=== PATIENT | male | born 1945 ===

== ENCOUNTER → 2018-09-02 | Outpatient (CLI) | payer MEDICARE, OTHER | END | disposition home or self-care (01) | LOC: PLD 13:59 → LAB SHORT 13:59 | DX: D04.5 Carcinoma in situ of skin of trunk (principal); C44.329 Squamous cell carcinoma of skin of other parts of face | CPT/HCPCS: 88305 ==

== ENCOUNTER → 2018-09-22 | Outpatient (CLI) | payer MEDICARE, OTHER | END | disposition home or self-care (01) | LOC: PLD 14:03 → LAB SHORT 14:03 | DX: L08.89 Other specified local infections of the skin and subcutaneous tissue (principal); B88.9 Infestation, unspecified | CPT/HCPCS: 88305 ==

== ENCOUNTER 2023-08-01 06:08 | Day surgery (SDC) | payer MEDICARE, OTHER ==
[~2023-08-01] VITALS: Ht 170.2 cm; Wt 71.7 kg
[2023-08-01] VITALS (8 sets, daily range): BP systolic 109–144; BP diastolic 64–101
[~2023-08-01 06:08] MED LIST: C COMPLEX1000 M1 PO; Crestor40 MG PO; ESCI20 PO; HYDCHL25 PO; IBUP200 PO; LORA.5 PO; LOTENSIN HCT PO; MECL12.5 PO; METO25ER PO; PRAV20 PO; VALCYTE PO; [UNRECOGNIZED DRUG - CODE] PO
[2023-08-01] MEDS ORDERED: Lactated Ringer's 1,000 ML IV SCH (06:20)
[2023-08-01] MEDS ORDERED: CeFAZolin Sodium 2,000 MG in NS 50 ML IV SCH (06:20)
[2023-08-01] MEDS ORDERED: Ondansetron HCl 2 MG / ML 2ML Vial ONE (07:24)
[2023-08-01] MEDS ORDERED: Dexamethasone Sod Phos 10 MG/ML 1ML VIAL ONE (07:24)
[2023-08-01] MEDS ORDERED: Ketorolac Tromethamine 30mg Vial ONE (07:24)
[2023-08-01] MEDS ORDERED: FentaNYL Citrate 50 MCG/ML 2 ML Injection ONE (07:24)
[2023-08-01] MEDS ORDERED: propofoL 20 ML IV ONE (07:24)
[2023-08-01] MEDS ORDERED: Rocuronium Bromide 10 MG/ML 5ML Injection IV ONE (07:24)
[2023-08-01] MEDS ORDERED: Bupivacaine 0.5% HCl 5 MG/ML 30MLVIAL ONE ×2 (07:25→07:26)
[2023-08-01] MEDS ORDERED: Ropivacaine 0.5% HCl/Pf 5 MG/ML 20ML VIAL ONE (07:27)
[2023-08-01] MEDS ORDERED: Sugammadex Sodium 200 MG/2ML SDV (100 MG/ML) ONE (09:42)
[2023-08-01] MEDS ORDERED: HYDROcodone 5-APAP 325 TAB PO PRN (10:05)
--- NOTE | 2023-08-01 10:56 | NUR ---
Discharge instructions reviewed with patient. Patient verbalizes understanding. Copy given to patient to take home. Patient States Post-Procedure ride home has been arranged.
--- NOTE | 2023-08-01 11:04 | NUR ---
Patient up to Ambulate independently. Gait steady.
--- NOTE | 2023-08-01 11:06 | NUR ---
Discharged via wheelchair to private car for ride home.
== END 2023-08-01 11:07 | disposition home or self-care (01) ==
LOC: ORSCMMR 06:08 → ORD 07:30 → ORSCMMR 11:07
PROVIDERS: Surgery
PROC: 8E0W4CZ Robotic Assisted Procedure of Trunk Region, Percutaneous Endoscopic Approach (ICD-10-PCS; principal; 2023-08-01 07:30)
PROC: 0YUA4JZ Supplement Bilateral Inguinal Region with Synthetic Substitute, Percutaneous Endoscopic Approach (ICD-10-PCS; principal; 2023-08-01 07:30)
DX: K40.20 Bilateral inguinal hernia, without obstruction or gangrene, not specified as recurrent (principal); I10 Essential (primary) hypertension; Z79.899 Other long term (current) drug therapy
CPT/HCPCS: A9270; C1781; J0690; J1100; J1885; J2405; J2704; J2795; J3010; J7120

== ENCOUNTER 2024-09-07 11:08 | Day surgery (SDC) | payer MEDICARE, OTHER ==
[~2024-09-07] VITALS: Ht 172.7 cm; Wt 68.8 kg
[~2024-09-07 11:08] MED LIST changes: +Lactated Ringer's 1,000 ML IV ONE; +propofoL 50 ML IV ONE
[2024-09-07] MEDS ORDERED: TAMSULOSIN HCL0.4 M1 (12:08)
[2024-09-07] MEDS ORDERED: Aspir 8181 MG (12:09)
[2024-09-07] MEDS ORDERED: Lactated Ringer's 1,000 ML IV ONE (12:38)
[2024-09-07 15:48] VITALS: BP 133/70
== END 2024-09-07 14:08 | disposition home or self-care (01) ==
LOC: ORSCSDS 11:08
PROVIDERS: Internal Medicine Gastroenterology
PROC: 0DJD8ZZ Inspection of Lower Intestinal Tract, Via Natural or Artificial Opening Endoscopic (ICD-10-PCS; principal; 2024-09-07 12:45)
DX: Z12.11 Encounter for screening for malignant neoplasm of colon (principal); I10 Essential (primary) hypertension; E78.2 Mixed hyperlipidemia; Z79.82 Long term (current) use of aspirin; Z79.899 Other long term (current) drug therapy
CPT/HCPCS: J2704; J7120